=== PATIENT | female | born 1985 | race Asian ===

== ENCOUNTER 2019-07-22 11:05 | Inpatient (IN) ==
[2019-07-22] MEDS ORDERED: OXYTOCIN 30 UNITS/500 ML BAG IV PRN ×2 (12:21)
--- NOTE | 2019-07-22 12:30 | History & Physical Report ---
Date of Service July 22, 2019 Assessment & Plan (1) : Admit to L&D. Labs, EFM/toco. OK for epidural if she desires. Will begin pitocin, as she is lester too frequently for cytotec for cervical ripening. She is agreeable to plan. History of Present Illness Chief Complaint: PROM Primary Care Provider: NO PCP 34yo @ 40 2/7 presents from office with leaking of fluid - started at 0830 this morning, clear fluid. She was examined and ferning slide was + as performed by Dr Gibson. She is not feeling ctx. No vaginal bleeding. + movement. complicated by advanced maternal age. Allergies Allergy/AdvReac Type Severity Reaction Status Date / Time No Known Drug Allergies Allergy Verified 07/22/19 10:39 Patient History Medical History (Updated 07/21/19 @ 11:01 by Emir Call Jr, MD, FACOG) History of varicella Surgical History (Updated 02/18/19 @ 10:48 by Sun Babin) History of wisdom tooth extraction Family History (Updated 02/18/19 @ 10:49 by Sun Babin) Father Thyroid disease Social History (Updated 02/18/19 @ 10:49 by Sun Babin) Preferred Language: Faroese Communication Ability: Effective Beliefs That Will Affect Care: None marital status: Current Living Situation: Spouse Feels Safe at Home: Yes Smoking Status: Never smoker Hx Alcohol Use: No Hx Substance Use: No Review of Systems All systems reviewed & are unremarkable except as noted in HPI & below Physical Exam Physical Exam: FHT Cat 1 [place] Q 2 - not really feeling these SVE /-3 Constitutional: WD/WN, vitals as above Respiratory: normal respiratory effort, lungs clear to auscultation no respiratory distress Cardiovascular: Rate/Rhythm: regular rate and regular rhythm Gastrointestinal (Abdomen): Inspection/Auscultation: abdomen normal to inspection Percussion/Palpation: abdomen soft; abdomen nontender Gravid. No s/s chorio or abruption. Skin: no rashes, warm and dry Psychiatric: A+Ox3, euthymic affect Results & Data Vital Signs (Past 12 Hours) Vital Signs Temp Pulse Resp BP 07/22/19 11:48 37.1 C 18 07/22/19 11:21 88 106/60
[2019-07-22 12:41] LABS: Hematocrit (blood only) 39.8 % (37-47); Hemoglobin 13.2 g/dL (12.0-16.0); Mean Corpuscular Hemoglobin 32.3 pg (25-34); Mean Corpuscular Volume 97.3 fL (80-100); Mean Platelet Volume 10.4 fL (7.4-10.4); Platelet Count 170 K/uL (130-400); RDW Coefficient of Variation 13.7 % (11.5-14.5); RDW Standard Deviation 48.9 fL (36.4-46.3); Red Blood Count 4.09 M/uL (4.2-5.4); White Blood Count 10.32 K/uL (4.8-10.8)
[2019-07-22 12:43] LABS: Mean Corpuscular Hgb Conc 33.2 g/dL (32-36)
[2019-07-22] MEDS: LACTATED RINGER'S 1,000 ML IV PRN ×3 (13:23→21:39)
[2019-07-22] MEDS ORDERED: BUPIVACAINE 0.25% 30 ML VIAL ONE (17:46)
[2019-07-22] MEDS ORDERED: ePHEDrine sulfate 50 MG/ML AMP ONE (17:46)
[2019-07-22] MEDS ORDERED: fentaNYL citrate 100 MCG/2 ML VIAL ONE (17:46)
[2019-07-22] MEDS ORDERED: fentaNYL 2MCG/ML ROPIV 1.25MG/ML 100 ML BAG EPI ONE (17:47)
[2019-07-22] MEDS ORDERED: NALOXONE HCL 0.4 MG/1 ML VIAL/CARP IV PRN (18:12)
[2019-07-22] MEDS ORDERED: ONDANSETRON INJ 2 MG/ML 2 ML VIAL IV PRN (18:12)
[2019-07-22] MEDS ORDERED: DiphenhydrAMINE HCL 50 MG/ML VIAL IV PRN (18:12)
[2019-07-22] MEDS ORDERED: NALBUPHINE HCL INJ 10 MG/ML AMP IV PRN (18:12)
[2019-07-22] MEDS ORDERED: ePHEDrine sulfate 50 MG/ML AMP IV PRN (18:12)
[2019-07-22] MEDS ORDERED: NALOXONE HCL 1 MG in SODIUM CHLORIDE 0.9% 1000ML 1,000 ML IV PRN (18:12)
--- NOTE | 2019-07-22 18:12 | Anesthesiology Consultation ---
Date of Service July 22, 2019 Assessment & Plan Chart Review Chart Review: Acceptable Risk for Labor Epidural Consults Requested none ASA ASA2 Proposed Anesthesia Anesthesia Type: Labor Epidural Risk / Benefits Reviewed With: PT / POA / Parent / Guardian, Accepts Plan and Informed Consent Obtained History Height/Weight Height: 5 ft 5.35 in Weight: 75.568 kg Allergies Allergy/AdvReac Type Severity Reaction Status Date / Time No Known Drug Allergies Allergy Verified 07/22/19 10:39 Medications Home Medications Medication Instructions Recorded Confirmed Last Taken vit-iron fum-folic ac 1 tab PO DAILY 07/22/19 07/22/19 Unknown [ Vitamin] Active Medications Generic Name Dose Route Start Last Admin Trade Name Freq PRN Reason Stop Dose Admin Lactated Ringer's 1,000 mls @ 125 mls/hr 07/22/19 12:21 07/22/19 18:42 Lr IV 07/24/19 12:20 125 mls/hr .Q8H PRN Infusion L&D Protocol Protocol Oxytocin 30 units in 500 mls @ 9 mls/hr 07/22/19 12:21 07/22/19 16:45 Pitocin IV 07/24/19 12:20 0.54 units/hr .Q24H PRN 9 mls/hr Labor Induction/Augmentation Titration Protocol 0.54 UNITS/HR Past Medical History Medical History History of varicella Past Family History Family History Father Thyroid disease Past Surgical History Surgical History History of wisdom tooth extraction Social History Smoking Status: Never smoker Hx Alcohol Use: No Hx Substance Use: No Physical Exam Vital Signs Last Vital Signs Temp 37.1 C 07/22/19 16:47 Pulse 87 07/22/19 18:49 Resp 16 07/22/19 15:11 BP 113/55 L 07/22/19 18:47 Pulse Ox 96 07/22/19 18:49 ENMT Mouth: no TMJ abnormality and no dentition abnormality Thyromental Distance: > or= 3.5 Finger Breadths Mallampati Class: II Neck neck extension not limited Respiratory normal respiratory effort; no respiratory distress Auscultation: lungs clear to auscultation bilaterally Cardiovascular Rate/Rhythm: regular rate and regular rhythm Neurologic moves all extremities Psychiatric Orientation: alert and oriented x 3 Testing Laboratory Results 07/22/19 12:30
--- NOTE | 2019-07-22 20:06 | Obstetrical Progress Note ---
Date of Service July 22, 2019 Subjective Comfortable with epidural. FHT Cat 1 [place] Q 2 SVE 1-2/80/-3. Leaking clear fluid with exam. Continue increasing pitocin at this time. Results & Data Vital Signs (Past 12 Hours) Vital Signs Temp Pulse Resp BP Pulse Ox 07/22/19 20:01 36.8 C 16 07/22/19 20:00 81 97 07/22/19 19:55 82 97 07/22/19 19:50 81 97 07/22/19 19:48 88 105/59 L 07/22/19 19:45 78 96 07/22/19 19:40 78 111/57 L 96 07/22/19 19:35 89 97 07/22/19 19:30 93 H 97 07/22/19 19:29 75 106/58 L 07/22/19 19:24 113 H 98 07/22/19 19:19 76 108/59 L 95 07/22/19 19:14 79 97 07/22/19 19:09 85 94 07/22/19 19:08 93 H 103/51 L 07/22/19 19:04 92 H 96 07/22/19 19:00 37.1 C 16 07/22/19 18:59 80 96 07/22/19 18:58 83 109/55 L 07/22/19 18:56 87 106/58 L 07/22/19 18:54 87 97 07/22/19 18:53 37.1 C 16 07/22/19 18:49 87 96 07/22/19 18:48 85 94 07/22/19 18:47 82 113/55 L 07/22/19 18:45 85 112/59 L 07/22/19 18:44 90 98 07/22/19 18:43 83 108/61 07/22/19 18:41 86 109/58 L 07/22/19 18:39 95 H 117/68 96 07/22/19 18:37 88 119/65 07/22/19 18:35 82 113/64 07/22/19 18:34 82 98 07/22/19 18:33 78 109/63 07/22/19 18:31 85 109/57 L 07/22/19 18:29 79 98 07/22/19 18:24 81 97 07/22/19 18:19 81 95 07/22/19 18:18 76 115/59 L 07/22/19 16:47 37.1 C 07/22/19 16:01 36.8 C 07/22/19 15:11 37.1 C 16 07/22/19 15:02 94 H 95/54 L 07/22/19 14:10 37.1 C 82 18 106/63 07/22/19 13:19 79 105/56 L 07/22/19 11:48 37.1 C 18 07/22/19 11:21 88 106/60 07/22/19 11:20 18 PG Care Time/CCT Total # of Minutes Spent Total Time Spent with Patient: Total time spent is greater than 50% in coordination of care (as documented) at patient's floor/unit and/or counseling patient:
[2019-07-23] MEDS: fentaNYL 2MCG/ML ROPIV 1.25MG/ML 100 ML BAG EPI PRN ×2 (02:16→08:53)
[2019-07-23] MEDS: LACTATED RINGER'S 1,000 ML IV PRN ×2 (04:42→10:30)
--- NOTE | 2019-07-23 07:03 | Obstetrical Progress Note ---
Date of Service July 23, 2019 Subjective Feeling ctx, no urge to push yet. Last exam 9cm. Continue labor. Anticipate . Results & Data Vital Signs (Past 12 Hours) Vital Signs Temp Pulse Resp BP Pulse Ox 07/23/19 06:59 101 H 94 07/23/19 06:56 91 H 102/57 L 07/23/19 06:54 90 93 07/23/19 06:49 103 H 94 07/23/19 06:44 108 H 95 07/23/19 06:41 95 H 102/57 L 07/23/19 06:39 97 H 93 07/23/19 06:34 93 H 93 07/23/19 06:29 98 H 94 07/23/19 06:26 100 H 97/54 L 07/23/19 06:24 92 H 93 07/23/19 06:19 92 H 94 07/23/19 06:14 95 H 95 07/23/19 06:11 103 H 101/58 L 07/23/19 06:09 93 H 94 07/23/19 06:04 95 H 96 07/23/19 05:59 95 H 94 07/23/19 05:56 93 H 109/60 07/23/19 05:54 93 H 95 07/23/19 05:50 37.1 C 16 07/23/19 05:49 98 H 95 07/23/19 05:44 91 H 94 07/23/19 05:41 93 H 103/56 L 07/23/19 05:39 91 H 92 07/23/19 05:34 90 93 07/23/19 05:29 93 H 94 07/23/19 05:27 91 H 101/59 L 07/23/19 05:24 93 H 93 07/23/19 05:19 93 H 94 07/23/19 05:14 93 H 94 07/23/19 05:11 90 105/58 L 07/23/19 05:09 37.5 C 102 H 18 97 07/23/19 05:04 92 H 93 07/23/19 04:59 94 H 93 07/23/19 04:57 92 H 100/55 L 07/23/19 04:54 94 H 94 07/23/19 04:49 93 H 93 07/23/19 04:44 94 H 92 07/23/19 04:42 92 H 101/57 L 07/23/19 04:39 93 H 93 07/23/19 04:37 104 H 94 07/23/19 04:34 107 H 93 07/23/19 04:30 106 H 94 07/23/19 04:29 95 H 94 07/23/19 04:27 98 H 106/60 07/23/19 04:25 101 H 94 07/23/19 04:24 97 H 94 07/23/19 04:20 98 H 94 07/23/19 04:19 99 H 94 07/23/19 04:14 38.1 C H 102 H 18 94 07/23/19 04:13 97 H 105/59 L 07/23/19 04:09 99 H 94 07/23/19 04:08 102 H 94 07/23/19 04:04 98 H 94 07/23/19 04:02 16 07/23/19 03:59 107 H 95 07/23/19 03:58 100 H 108/55 L 07/23/19 03:54 100 H 95 07/23/19 03:49 97 H 92 07/23/19 03:44 104 H 94 07/23/19 03:42 93 H 105/62 07/23/19 03:40 107 H 94 07/23/19 03:39 107 H 93 07/23/19 03:34 97 H 95 07/23/19 03:32 99 H 94 07/23/19 03:29 97 H 94 07/23/19 03:26 94 H 107/64 07/23/19 03:25 96 H 93 07/23/19 03:24 98 H 96 07/23/19 03:19 93 H 94 07/23/19 03:18 95 H 93 07/23/19 03:15 20 07/23/19 03:14 92 H 95 07/23/19 03:11 93 H 113/66 07/23/19 03:10 93 H 94 07/23/19 03:09 98 H 97 07/23/19 03:04 93 H 95 07/23/19 03:02 96 H 94 07/23/19 02:59 93 H 95 07/23/19 02:58 97 H 115/67 07/23/19 02:54 101 H 94 07/23/19 02:50 97 H 94 07/23/19 02:49 100 H 95 07/23/19 02:44 93 H 93 07/23/19 02:43 90 116/62 07/23/19 02:42 93 H 94 07/23/19 02:39 101 H 95 07/23/19 02:36 92 H 94 07/23/19 02:34 99 H 96 07/23/19 02:29 92 H 95 07/23/19 02:27 95 H 113/65 07/23/19 02:24 90 96 07/23/19 02:19 92 H 95 07/23/19 02:14 92 H 95 07/23/19 02:12 93 H 118/69 07/23/19 02:09 96 H 97 07/23/19 02:08 95 H 93 07/23/19 02:04 94 H 96 07/23/19 02:01 90 94 07/23/19 02:00 37.3 C 18 07/23/19 01:59 100 H 95 07/23/19 01:57 89 106/54 L 07/23/19 01:54 95 H 96 07/23/19 01:49 92 H 96 07/23/19 01:44 89 95 07/23/19 01:42 86 109/65 07/23/19 01:39 89 96 07/23/19 01:34 84 97 07/23/19 01:29 93 H 95 07/23/19 01:28 85 99/70 L 94 07/23/19 01:24 89 95 07/23/19 01:23 86 93 07/23/19 01:19 87 20 95 07/23/19 01:14 84 97 07/23/19 01:13 88 121/59 L 07/23/19 01:10 87 94 07/23/19 01:09 92 H 97 07/23/19 01:05 86 94 07/23/19 01:04 84 96 07/23/19 00:59 80 96 07/23/19 00:57 80 104/59 L 07/23/19 00:54 94 H 95 07/23/19 00:52 87 94 07/23/19 00:49 87 92 07/23/19 00:47 92 H 93 07/23/19 00:44 86 93 07/23/19 00:43 83 97/66 L 07/23/19 00:40 90 94 07/23/19 00:39 97 H 96 07/23/19 00:34 96 H 97 07/23/19 00:33 89 93 07/23/19 00:29 87 97 07/23/19 00:27 84 105/69 07/23/19 00:26 85 94 07/23/19 00:24 91 H 96 07/23/19 00:20 88 94 07/23/19 00:19 88 94 07/23/19 00:14 82 95 07/23/19 00:12 84 94 07/23/19 00:11 83 111/60 07/23/19 00:09 85 97 07/23/19 00:06 84 93 07/23/19 00:04 81 95 07/22/19 23:59 82 97 07/22/19 23:58 37.0 C 90 16 105/59 L 07/22/19 23:54 89 94 07/22/19 23:49 83 96 07/22/19 23:44 85 95 07/22/19 23:43 90 102/57 L 07/22/19 23:40 86 93 07/22/19 23:39 85 98 07/22/19 23:34 81 94 07/22/19 23:29 84 97 07/22/19 23:27 78 99/54 L 07/22/19 23:24 96 H 97 07/22/19 23:21 86 94 07/22/19 23:19 104 H 96 07/22/19 23:16 18 07/22/19 23:14 93 H 97 07/22/19 23:12 80 100/56 L 07/22/19 23:09 77 95 07/22/19 23:06 80 94 07/22/19 23:04 82 97 07/22/19 22:59 78 94 07/22/19 22:57 74 105/51 L 07/22/19 22:54 81 96 07/22/19 22:51 81 94 07/22/19 22:49 79 97 07/22/19 22:44 80 97 07/22/19 22:42 75 130/55 L 07/22/19 22:39 76 96 07/22/19 22:34 80 96 07/22/19 22:29 81 97 07/22/19 22:27 96 H 108/53 L 07/22/19 22:25 37.1 C 103 H 18 94 07/22/19 22:24 85 96 07/22/19 22:19 73 96 07/22/19 22:14 89 95 07/22/19 22:13 76 92 07/22/19 22:12 91 H 96/57 L 07/22/19 22:04 84 95 07/22/19 21:59 78 96 07/22/19 21:51 83 96 07/22/19 21:46 88 95 07/22/19 21:41 82 97 07/22/19 21:36 81 98 07/22/19 21:34 77 97/53 L 07/22/19 21:31 78 96 07/22/19 21:26 79 94 07/22/19 21:21 76 97 07/22/19 21:16 83 96 07/22/19 21:11 77 97 07/22/19 21:06 74 98 07/22/19 21:04 85 113/56 L 07/22/19 21:01 101 H 97 07/22/19 21:00 36.8 C 16 07/22/19 20:56 81 97 07/22/19 20:51 90 96 07/22/19 20:46 92 H 96 07/22/19 20:41 90 97 07/22/19 20:36 81 96 07/22/19 20:34 85 108/58 L 07/22/19 20:30 81 96 07/22/19 20:25 83 98 07/22/19 20:20 79 96 07/22/19 20:15 79 96 07/22/19 20:10 94 H 97 07/22/19 20:06 88 103/59 L 07/22/19 20:05 84 97 07/22/19 20:01 36.8 C 16 07/22/19 20:00 81 97 07/22/19 19:55 82 97 07/22/19 19:50 81 97 07/22/19 19:48 88 105/59 L 07/22/19 19:45 78 96 07/22/19 19:40 78 111/57 L 96 07/22/19 19:35 89 97 07/22/19 19:30 93 H 97 07/22/19 19:29 75 106/58 L 07/22/19 19:24 113 H 98 07/22/19 19:19 76 108/59 L 95 07/22/19 19:14 79 97 07/22/19 19:09 85 94 07/22/19 19:08 93 H 103/51 L 07/22/19 19:04 92 H 96 PG Care Time/CCT Total # of Minutes Spent Total Time Spent with Patient: Total time spent is greater than 50% in coordination of care (as documented) at patient's floor/unit and/or counseling patient:
--- NOTE | 2019-07-23 07:30 | Labor Progress Brief Note ---
Date of Service July 23, 2019 Subjective Still not feeling ctx or urge to push. Very comfortable. FHT Cat 1 [place] Q 2 SVE complete dilation/+1 station Will begin pushing. Results & Data Vital Signs (Past 12 Hours) Vital Signs Temp Pulse Resp BP Pulse Ox 07/23/19 07:24 92 H 96 07/23/19 07:19 37.4 C 93 H 20 96 07/23/19 07:14 99 H 94 07/23/19 07:12 93 H 96/51 L 07/23/19 07:09 100 H 94 07/23/19 07:04 90 93 07/23/19 06:59 101 H 94 07/23/19 06:56 91 H 102/57 L 07/23/19 06:54 90 93 07/23/19 06:49 103 H 94 07/23/19 06:44 108 H 95 07/23/19 06:41 95 H 102/57 L 07/23/19 06:39 97 H 93 07/23/19 06:34 93 H 93 07/23/19 06:29 98 H 94 07/23/19 06:26 100 H 97/54 L 07/23/19 06:24 92 H 93 07/23/19 06:19 92 H 94 07/23/19 06:14 95 H 95 07/23/19 06:11 103 H 101/58 L 07/23/19 06:09 93 H 94 07/23/19 06:04 95 H 96 07/23/19 05:59 95 H 94 07/23/19 05:56 93 H 109/60 07/23/19 05:54 93 H 95 07/23/19 05:50 37.1 C 16 07/23/19 05:49 98 H 95 07/23/19 05:44 91 H 94 07/23/19 05:41 93 H 103/56 L 07/23/19 05:39 91 H 92 07/23/19 05:34 90 93 07/23/19 05:29 93 H 94 07/23/19 05:27 91 H 101/59 L 07/23/19 05:24 93 H 93 07/23/19 05:19 93 H 94 07/23/19 05:14 93 H 94 07/23/19 05:11 90 105/58 L 07/23/19 05:09 37.5 C 102 H 18 97 07/23/19 05:04 92 H 93 07/23/19 04:59 94 H 93 07/23/19 04:57 92 H 100/55 L 07/23/19 04:54 94 H 94 07/23/19 04:49 93 H 93 07/23/19 04:44 94 H 92 07/23/19 04:42 92 H 101/57 L 07/23/19 04:39 93 H 93 07/23/19 04:37 104 H 94 07/23/19 04:34 107 H 93 07/23/19 04:30 106 H 94 07/23/19 04:29 95 H 94 07/23/19 04:27 98 H 106/60 07/23/19 04:25 101 H 94 07/23/19 04:24 97 H 94 07/23/19 04:20 98 H 94 07/23/19 04:19 99 H 94 07/23/19 04:14 38.1 C H 102 H 18 94 07/23/19 04:13 97 H 105/59 L 07/23/19 04:09 99 H 94 07/23/19 04:08 102 H 94 07/23/19 04:04 98 H 94 07/23/19 04:02 16 07/23/19 03:59 107 H 95 07/23/19 03:58 100 H 108/55 L 07/23/19 03:54 100 H 95 07/23/19 03:49 97 H 92 07/23/19 03:44 104 H 94 07/23/19 03:42 93 H 105/62 07/23/19 03:40 107 H 94 07/23/19 03:39 107 H 93 07/23/19 03:34 97 H 95 07/23/19 03:32 99 H 94 07/23/19 03:29 97 H 94 07/23/19 03:26 94 H 107/64 07/23/19 03:25 96 H 93 07/23/19 03:24 98 H 96 07/23/19 03:19 93 H 94 07/23/19 03:18 95 H 93 07/23/19 03:15 20 07/23/19 03:14 92 H 95 07/23/19 03:11 93 H 113/66 07/23/19 03:10 93 H 94 07/23/19 03:09 98 H 97 07/23/19 03:04 93 H 95 07/23/19 03:02 96 H 94 07/23/19 02:59 93 H 95 07/23/19 02:58 97 H 115/67 07/23/19 02:54 101 H 94 07/23/19 02:50 97 H 94 07/23/19 02:49 100 H 95 07/23/19 02:44 93 H 93 07/23/19 02:43 90 116/62 07/23/19 02:42 93 H 94 07/23/19 02:39 101 H 95 07/23/19 02:36 92 H 94 07/23/19 02:34 99 H 96 07/23/19 02:29 92 H 95 07/23/19 02:27 95 H 113/65 07/23/19 02:24 90 96 07/23/19 02:19 92 H 95 07/23/19 02:14 92 H 95 07/23/19 02:12 93 H 118/69 07/23/19 02:09 96 H 97 07/23/19 02:08 95 H 93 07/23/19 02:04 94 H 96 07/23/19 02:01 90 94 07/23/19 02:00 37.3 C 18 07/23/19 01:59 100 H 95 07/23/19 01:57 89 106/54 L 07/23/19 01:54 95 H 96 07/23/19 01:49 92 H 96 07/23/19 01:44 89 95 07/23/19 01:42 86 109/65 07/23/19 01:39 89 96 07/23/19 01:34 84 97 07/23/19 01:29 93 H 95 07/23/19 01:28 85 99/70 L 94 07/23/19 01:24 89 95 07/23/19 01:23 86 93 07/23/19 01:19 87 20 95 07/23/19 01:14 84 97 07/23/19 01:13 88 121/59 L 07/23/19 01:10 87 94 07/23/19 01:09 92 H 97 07/23/19 01:05 86 94 07/23/19 01:04 84 96 07/23/19 00:59 80 96 07/23/19 00:57 80 104/59 L 07/23/19 00:54 94 H 95 07/23/19 00:52 87 94 07/23/19 00:49 87 92 07/23/19 00:47 92 H 93 07/23/19 00:44 86 93 07/23/19 00:43 83 97/66 L 07/23/19 00:40 90 94 07/23/19 00:39 97 H 96 07/23/19 00:34 96 H 97 07/23/19 00:33 89 93 07/23/19 00:29 87 97 07/23/19 00:27 84 105/69 07/23/19 00:26 85 94 07/23/19 00:24 91 H 96 07/23/19 00:20 88 94 07/23/19 00:19 88 94 07/23/19 00:14 82 95 07/23/19 00:12 84 94 07/23/19 00:11 83 111/60 07/23/19 00:09 85 97 07/23/19 00:06 84 93 07/23/19 00:04 81 95 07/22/19 23:59 82 97 07/22/19 23:58 37.0 C 90 16 105/59 L 07/22/19 23:54 89 94 07/22/19 23:49 83 96 07/22/19 23:44 85 95 07/22/19 23:43 90 102/57 L 07/22/19 23:40 86 93 07/22/19 23:39 85 98 07/22/19 23:34 81 94 07/22/19 23:29 84 97 07/22/19 23:27 78 99/54 L 07/22/19 23:24 96 H 97 07/22/19 23:21 86 94 07/22/19 23:19 104 H 96 07/22/19 23:16 18 07/22/19 23:14 93 H 97 07/22/19 23:12 80 100/56 L 07/22/19 23:09 77 95 07/22/19 23:06 80 94 07/22/19 23:04 82 97 07/22/19 22:59 78 94 07/22/19 22:57 74 105/51 L 07/22/19 22:54 81 96 07/22/19 22:51 81 94 07/22/19 22:49 79 97 07/22/19 22:44 80 97 07/22/19 22:42 75 130/55 L 07/22/19 22:39 76 96 07/22/19 22:34 80 96 07/22/19 22:29 81 97 07/22/19 22:27 96 H 108/53 L 07/22/19 22:25 37.1 C 103 H 18 94 07/22/19 22:24 85 96 07/22/19 22:19 73 96 07/22/19 22:14 89 95 07/22/19 22:13 76 92 07/22/19 22:12 91 H 96/57 L 07/22/19 22:04 84 95 07/22/19 21:59 78 96 07/22/19 21:51 83 96 07/22/19 21:46 88 95 07/22/19 21:41 82 97 07/22/19 21:36 81 98 07/22/19 21:34 77 97/53 L 07/22/19 21:31 78 96 07/22/19 21:26 79 94 07/22/19 21:21 76 97 07/22/19 21:16 83 96 07/22/19 21:11 77 97 07/22/19 21:06 74 98 07/22/19 21:04 85 113/56 L 07/22/19 21:01 101 H 97 07/22/19 21:00 36.8 C 16 07/22/19 20:56 81 97 07/22/19 20:51 90 96 07/22/19 20:46 92 H 96 07/22/19 20:41 90 97 07/22/19 20:36 81 96 07/22/19 20:34 85 108/58 L 07/22/19 20:30 81 96 07/22/19 20:25 83 98 07/22/19 20:20 79 96 07/22/19 20:15 79 96 07/22/19 20:10 94 H 97 07/22/19 20:06 88 103/59 L 07/22/19 20:05 84 97 07/22/19 20:01 36.8 C 16 07/22/19 20:00 81 97 07/22/19 19:55 82 97 07/22/19 19:50 81 97 07/22/19 19:48 88 105/59 L 07/22/19 19:45 78 96 07/22/19 19:40 78 111/57 L 96 07/22/19 19:35 89 97 07/22/19 19:30 93 H 97 07/22/19 19:29 75 106/58 L
[2019-07-23] MEDS ORDERED: HYDROCORTISONE ACETATE 25 MG SUPP PR PRN (10:35)
[2019-07-23] MEDS ORDERED: SUPERCREAM 0.870% 15 GM JAR EXT PRN (10:35)
[2019-07-23] MEDS ORDERED: ACETAMINOPHEN 325 MG TAB PO PRN (10:35)
[2019-07-23] MEDS ORDERED: BENZOCAINE 20% AER SPR 82.5 GM CAN EXT PRN (10:35)
[2019-07-23] MEDS ORDERED: OXYTOCIN 30 UNITS/500 ML BAG IV PRN (10:35)
[2019-07-23] MEDS ORDERED: DIPHTHERIA/TETANUS/PERTUSSIS 0.5 ML SYR/VIAL IM ONE (10:35)
[2019-07-23] MEDS ORDERED: bisacodyL 10 MG SUPP PR PRN (10:35)
--- NOTE | 2019-07-23 10:49 | Anesthesia Procedure Note ---
Date of Service July 23, 2019 Anesthesia Post Epidural Note Vital Signs Vital Signs: Temp Pulse Resp BP Pulse Ox 37.3 C 141 H 20 101/50 L 94 07/23/19 08:11 07/23/19 10:42 07/23/19 08:11 07/23/19 10:42 07/23/19 10:05 Pain Intensity Abdomen: Pain Intensity: 0 Notes Mental Status: alert / awake / arousable and participated in evaluation Patient Amnestic to Procedure: No Nausea / Vomiting: adequately controlled Pain: adequately controlled Airway Patency, RR, SpO2: stable & adequate BP & HR: stable & adequate Hydration State: stable & adequate Neuraxial Anesthesia: was administered and sensory block is resolving Anesthetic Complications: no major complications apparent and Pt Satisfied with anesthetic care Epidural: Removed without complications and With tip intact
--- NOTE | 2019-07-23 11:00 | Delivery Summary ---
DATE OF OPERATION: 07/23/2019 PROCEDURE: Normal spontaneous vaginal delivery with second-degree perineal laceration repair and bilateral labial laceration repair. SURGEON: Ole Romero MD. PREOPERATIVE DIAGNOSES: 1. Single intrauterine at 40 weeks 3 days' gestational age. 2. Spontaneous rupture of membranes. 3. Advanced maternal age. POSTOPERATIVE DIAGNOSES: 1. Single intrauterine at 40 weeks 3 days' gestational age. 2. Spontaneous rupture of membranes. 3. Advanced maternal age. 4. Status post delivery. ESTIMATED BLOOD LOSS: 400 mL. DRAINS: Straight cath at the completion of the case for 400 mL. URINE OUTPUT: 400 mL as above. COMPLICATIONS: None. FINDINGS: Viable female infant with weight 8 pounds 3 ounces, Apgars of 8 and 9 at one and five minutes, respectively. DESCRIPTION OF PROCEDURE: The patient progressed to 10 cm dilated, 100% effaced, +2 station, pushed over intact perineum with epidural anesthesia and delivered a viable female with weight and Apgars as noted above. Head of the delivered in ДМИТРИЙ position, restituted to left transverse. Body and shoulders quickly followed. was noted to be vigorous upon delivery. A 1-minute delayed cord clamping was initiated, after which the cord was doubly clamped and cut, and was returned to the maternal abdomen. Cord blood was then obtained. Attention was then turned to deliver the placenta, which was delivered intact, 3-vessel cord, gentle cord traction. On inspection of perineum, vagina, and cervix, there was noted to be a second degree perineal laceration, which was repaired in the typical crown stitch and bilateral labial lacerations, which were reapproximated with interrupted stitch of 3-0 Vicryl. Needle, sponge and instrument counts were correct at the completion of the case. Both mother and were stable in the immediate post-delivery period. I attest to the content of the Intraoperative Record and any orders documented therein. Any exception s are noted below.
[2019-07-23] MEDS: IBUPROFEN 600 MG TAB PO PRN ×3 (11:37→23:42)
[2019-07-23] MEDS: DOCUSATE SODIUM 100 MG CAP PO SCH (20:52)
[2019-07-24 07:05] LABS: Hematocrit (blood only) 33.4 % (37-47); Hemoglobin 11.1 g/dL (12.0-16.0); Mean Corpuscular Hemoglobin 32.4 pg (25-34); Mean Corpuscular Hgb Conc 33.2 g/dL (32-36); Mean Corpuscular Volume 97.4 fL (80-100); Mean Platelet Volume 10.5 fL (7.4-10.4); Platelet Count 141 K/uL (130-400); RDW Standard Deviation 49.4 fL (36.4-46.3); Red Blood Count 3.43 M/uL (4.2-5.4); White Blood Count 13.83 K/uL (4.8-10.8)
--- NOTE | 2019-07-24 07:20 | Obstetrical Progress Note ---
Date of Service July 24, 2019 Assessment & Plan (1) Vaginal delivery: Doing well. routine care. Day #:: 1 Subjective Ambulation: ambulating normally Voiding: no voiding problems Passing Gas:: Yes Diet Tolerance:: regular diet Lochia:: Small Feeding Type:: breast feeding breast and supplementing. Results & Data Vital Signs (Past 12 Hours) Vital Signs Temp Pulse Resp BP Pulse Ox 07/24/19 04:25 36.3 C L 76 16 99/66 L 07/24/19 00:45 36.7 C 75 18 105/70 07/23/19 20:16 36.8 C 75 20 104/62 98
[2019-07-24] MEDS: IBUPROFEN 600 MG TAB PO PRN ×3 (08:26→19:36)
[2019-07-24] MEDS: PRENATAL VITAMIN 1 TAB PO SCH (08:26)
[2019-07-24] MEDS: DOCUSATE SODIUM 100 MG CAP PO SCH ×2 (08:26→19:36)
[2019-07-24] MEDS ORDERED: bisacodyL 5 MG TABEC PO SCH (20:00)
[2019-07-25] MEDS: IBUPROFEN 600 MG TAB PO PRN (04:32)
[2019-07-25 06:04] LABS: Hematocrit (blood only) 30.6 % (37-47); Hemoglobin 10.1 g/dL (12.0-16.0)
[2019-07-25] MEDS: DOCUSATE SODIUM 100 MG CAP PO SCH (07:51)
[2019-07-25] MEDS: PRENATAL VITAMIN 1 TAB PO SCH (07:51)
--- NOTE | 2019-07-25 08:15 | Obstetrical Progress Note ---
Date of Service July 25, 2019 Assessment & Plan (1) Vaginal delivery: Doing well. Stable for discharge Subjective Ambulation: ambulating normally Voiding: no voiding problems Passing Gas:: Yes Diet Tolerance:: regular diet Lochia:: Small Feeding Type:: breast feeding Current Pain Level(1-10): 2 Physical Exam Constitutional WD/WN, vitals as above Respiratory normal respiratory effort; no respiratory distress and no labored breathing Gastrointestinal (Abdomen) Inspection/Auscultation: abdomen normal to inspection; abdomen not distended Percussion/Palpation: abdomen soft; abdomen nontender, no guarding and abdomen not rigid Genitourinary OB Exam Abdomen: + fundal height Fundus: + firm and + relation to umbilicus (Below); not tender and not boggy Results & Data Vital Signs (Past 12 Hours) Vital Signs Temp Pulse Resp BP Pulse Ox 07/25/19 07:30 36.7 C 71 16 97/63 L 07/24/19 23:35 36.8 C 82 16 98/61 L 07/24/19 20:30 36.7 C 76 16 99/66 L 97
== END 2019-07-25 13:45 | disposition home or self-care (01) | DRG 807 ==
LOC: OPB 11:05 → 4S2 11:06 → 4S1 21:54 → 4S2 07-23 14:30